=== PATIENT | male | born 1955 | race African-American/Black ===

== ENCOUNTER 2016-06-20 14:10 | Inpatient (IN) | payer OTHER ==
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
--- NOTE | 2016-06-20 16:20 | HP ---
HITESH BECKER Rehab Assess/Revision - Admission History Admitted to Rehab from: [facility] Date of Admission to Rehab: 06/20/16 - Vital signs Vital Signs: Vital Signs Period Temp Pulse Resp BP Sys/Mattson Pulse Ox Last 24 Hr 98.2 F 104 18 124/83 - Findings Detox History & Physical reviewed: Yes Concur with findings: Yes Comments/Additional Findings: transferred from detox to rehab admission as per protocol
[2016-06-20] MEDS ORDERED: ACETAMINOPHEN 325 MG TABLET (FP) PO PRN (16:21)
[2016-06-20] MEDS ORDERED: MENTHOL/PHENOL 1 EACH UD MM PRN (16:21)
[2016-06-20] MEDS ORDERED: P-EPHED 60MG/TRIPROLIDI 2.5MG TABLET PO PRN (16:21)
[2016-06-20] MEDS ORDERED: hydrOXYzine PAMOATE 50 MG CAPSULE (FP) PO PRN (16:21)
[2016-06-20] MEDS ORDERED: MAG HYDROX/AL HYDROX/SIMETH 30 ML UNIT-DOSE CUP PO PRN (16:21)
[2016-06-20] MEDS ORDERED: NICOTINE 14 MG/24 HOURS TOPICAL PATCH TD PRN (16:21)
[2016-06-20] MEDS ORDERED: diphenhydrAMINE HCL 50 MG CAPSULE PO PRN (16:21)
[2016-06-20] MEDS ORDERED: MAGNESIUM CITRATE 300 ML BOTTLE PO PRN (16:21)
[2016-06-20] MEDS ORDERED: LOPERAMIDE HCL 2 MG CAPSULE PO PRN (16:21)
[2016-06-20] MEDS ORDERED: MAGNESIUM HYDROX 2400MG/30ML ORAL SUSPENSION 30 ML CUP PO PRN (16:21)
[2016-06-20] MEDS: MONTELUKAST NA 10 MG TABLET PO SCH (21:26)
[2016-06-20] MEDS: DOXEPIN HCL 10 MG CAPSULE PO SCH (21:26)
[2016-06-20] MEDS: THIAMINE HCL 100 MG TABLET (FP) PO SCH (21:26)
[2016-06-20] MEDS: ALBUTEROL SO4 6.7 GM HFA INHALER IH PRN (21:27)
[2016-06-20] MEDS: ETRAVIRINE 200 MG TABLET PO SCH (21:28)
[2016-06-20] MEDS: RALTEGRAVIR POTASSIUM 400 MG TAB PO SCH (21:30)
[2016-06-20] MEDS: NICOTINE POLACRILEX 2 MG GUM BUC PRN (21:31)
[2016-06-21] MEDS: ALBUTEROL SO4 6.7 GM HFA INHALER IH PRN ×3 (06:25→21:28)
[2016-06-21] MEDS: RALTEGRAVIR POTASSIUM 400 MG TAB PO SCH ×2 (09:33→21:27)
[2016-06-21] MEDS: EMTRICITABINE 200MG/TENOFOVIR 300MG PO SCH (09:33)
[2016-06-21] MEDS: ETRAVIRINE 200 MG TABLET PO SCH ×2 (09:33→21:27)
[2016-06-21] MEDS: PRENATAL VITAMINS W/ FOLIC ACID TABLET (FP) PO SCH (09:33)
[2016-06-21] MEDS: SULFAMETHOXAZOLE/TRIMETHOPRIM 800MG/160MG D.S. TABLET PO SCH (09:33)
[2016-06-21] MEDS: NICOTINE POLACRILEX 2 MG GUM BUC PRN ×2 (09:35→21:29)
[2016-06-21] MEDS: IBUPROFEN 400 MG TABLET (FP) PO PRN (09:36)
[2016-06-21] MEDS: THIAMINE HCL 100 MG TABLET (FP) PO SCH (21:27)
[2016-06-21] MEDS: MONTELUKAST NA 10 MG TABLET PO SCH (21:27)
[2016-06-21] MEDS: guaiFENesin/D-METHORPHAN HB 10 ML UNIT-DOSE CUPS PO PRN (21:27)
[2016-06-21] MEDS: DOXEPIN HCL 10 MG CAPSULE PO SCH (21:27)
[2016-06-22] MEDS: guaiFENesin/D-METHORPHAN HB 10 ML UNIT-DOSE CUPS PO PRN ×2 (06:21→21:20)
[2016-06-22] MEDS: ALBUTEROL SO4 6.7 GM HFA INHALER IH PRN ×2 (06:22→21:20)
[2016-06-22] MEDS: NICOTINE POLACRILEX 2 MG GUM BUC PRN ×2 (06:22→21:22)
[2016-06-22] MEDS: SULFAMETHOXAZOLE/TRIMETHOPRIM 800MG/160MG D.S. TABLET PO SCH (09:53)
[2016-06-22] MEDS: RALTEGRAVIR POTASSIUM 400 MG TAB PO SCH ×2 (09:53→21:21)
[2016-06-22] MEDS: PRENATAL VITAMINS W/ FOLIC ACID TABLET (FP) PO SCH (09:54)
[2016-06-22] MEDS: EMTRICITABINE 200MG/TENOFOVIR 300MG PO SCH (09:54)
[2016-06-22] MEDS: ETRAVIRINE 200 MG TABLET PO SCH ×2 (09:57→21:20)
[2016-06-22] MEDS: IBUPROFEN 400 MG TABLET (FP) PO PRN (09:58)
[2016-06-22] MEDS: MONTELUKAST NA 10 MG TABLET PO SCH (21:20)
[2016-06-22] MEDS: DOXEPIN HCL 10 MG CAPSULE PO SCH (21:20)
[2016-06-22] MEDS: THIAMINE HCL 100 MG TABLET (FP) PO SCH (21:21)
[2016-06-23] MEDS: ALBUTEROL SO4 6.7 GM HFA INHALER IH PRN (06:23)
[2016-06-23] MEDS: guaiFENesin/D-METHORPHAN HB 10 ML UNIT-DOSE CUPS PO PRN ×2 (06:23→21:44)
[2016-06-23] MEDS: RALTEGRAVIR POTASSIUM 400 MG TAB PO SCH ×2 (10:10→21:39)
[2016-06-23] MEDS: SULFAMETHOXAZOLE/TRIMETHOPRIM 800MG/160MG D.S. TABLET PO SCH (10:10)
[2016-06-23] MEDS: PRENATAL VITAMINS W/ FOLIC ACID TABLET (FP) PO SCH (10:10)
[2016-06-23] MEDS: ETRAVIRINE 200 MG TABLET PO SCH ×2 (10:11→21:41)
[2016-06-23] MEDS: EMTRICITABINE 200MG/TENOFOVIR 300MG PO SCH (10:11)
[2016-06-23] MEDS: NICOTINE POLACRILEX 2 MG GUM BUC PRN (10:12)
[2016-06-23] MEDS ORDERED: ALBUTEROL SO4 2.5/IPRATROPIUM 0.5 INH SOL 3 ML VIAL.NEB. NEB PRN (12:58)
--- NOTE | 2016-06-23 13:01 | PN ---
[facility] Progress Note Note: 60 y/o m pt with h/o hiv, asthma c/o cough that is clear no fever and wheezing Vital Signs Temperature 97.9 F 06/23/16 07:14 Pulse Rate 93 H 06/23/16 07:14 Respiratory Rate 18 06/23/16 07:14 Blood Pressure 123/82 06/23/16 07:14 O2 Sat by Pulse Oximetry (%) pt aox3 in nad ambulating lungs + wheezes hattie imp- asthma hiv plan- symbicort inh bid duoneb neb q4h /prn n fluids
[2016-06-23] MEDS: DOXEPIN HCL 10 MG CAPSULE PO SCH (21:39)
[2016-06-23] MEDS: THIAMINE HCL 100 MG TABLET (FP) PO SCH (21:39)
[2016-06-23] MEDS: MONTELUKAST NA 10 MG TABLET PO SCH (21:39)
[2016-06-23] MEDS: BUDESONIDE/FORMETEROL FUMARATE 160/4.5 mcg INHALER IH SCH (21:42)
[2016-06-24] MEDS: RALTEGRAVIR POTASSIUM 400 MG TAB PO SCH ×2 (10:06→21:39)
[2016-06-24] MEDS: SULFAMETHOXAZOLE/TRIMETHOPRIM 800MG/160MG D.S. TABLET PO SCH (10:06)
[2016-06-24] MEDS: PRENATAL VITAMINS W/ FOLIC ACID TABLET (FP) PO SCH (10:06)
[2016-06-24] MEDS: ETRAVIRINE 200 MG TABLET PO SCH ×2 (10:09→21:39)
[2016-06-24] MEDS: BUDESONIDE/FORMETEROL FUMARATE 160/4.5 mcg INHALER IH SCH ×2 (10:09→21:42)
[2016-06-24] MEDS: EMTRICITABINE 200MG/TENOFOVIR 300MG PO SCH (10:10)
[2016-06-24] MEDS: guaiFENesin/D-METHORPHAN HB 10 ML UNIT-DOSE CUPS PO PRN ×2 (10:12→21:43)
[2016-06-24] MEDS: NICOTINE POLACRILEX 2 MG GUM BUC PRN (10:12)
[2016-06-24] MEDS: THIAMINE HCL 100 MG TABLET (FP) PO SCH (21:39)
[2016-06-24] MEDS: MONTELUKAST NA 10 MG TABLET PO SCH (21:39)
[2016-06-24] MEDS: DOXEPIN HCL 10 MG CAPSULE PO SCH (21:39)
[2016-06-25] MEDS ORDERED: PT OWN MED DRAWER 7, Y5N ONE (08:36)
[2016-06-25] MEDS: ETRAVIRINE 200 MG TABLET PO SCH ×2 (10:36→21:31)
[2016-06-25] MEDS: PRENATAL VITAMINS W/ FOLIC ACID TABLET (FP) PO SCH (10:37)
[2016-06-25] MEDS: SULFAMETHOXAZOLE/TRIMETHOPRIM 800MG/160MG D.S. TABLET PO SCH (10:37)
[2016-06-25] MEDS: EMTRICITABINE 200MG/TENOFOVIR 300MG PO SCH (10:37)
[2016-06-25] MEDS: RALTEGRAVIR POTASSIUM 400 MG TAB PO SCH ×2 (10:37→21:31)
[2016-06-25] MEDS: guaiFENesin/D-METHORPHAN HB 10 ML UNIT-DOSE CUPS PO PRN ×2 (10:40→21:32)
[2016-06-25] MEDS: IBUPROFEN 400 MG TABLET (FP) PO PRN (10:40)
[2016-06-25] MEDS: BUDESONIDE/FORMETEROL FUMARATE 160/4.5 mcg INHALER IH SCH ×2 (10:40→21:32)
[2016-06-25] MEDS: MONTELUKAST NA 10 MG TABLET PO SCH (21:31)
[2016-06-25] MEDS: THIAMINE HCL 100 MG TABLET (FP) PO SCH (21:31)
[2016-06-25] MEDS: DOXEPIN HCL 10 MG CAPSULE PO SCH (21:31)
[2016-06-25] MEDS: NICOTINE POLACRILEX 2 MG GUM BUC PRN (21:34)
[2016-06-26] MEDS: BUDESONIDE/FORMETEROL FUMARATE 160/4.5 mcg INHALER IH SCH ×2 (10:26→21:11)
[2016-06-26] MEDS: ETRAVIRINE 200 MG TABLET PO SCH ×2 (10:27→21:12)
[2016-06-26] MEDS: SULFAMETHOXAZOLE/TRIMETHOPRIM 800MG/160MG D.S. TABLET PO SCH (10:27)
[2016-06-26] MEDS: PRENATAL VITAMINS W/ FOLIC ACID TABLET (FP) PO SCH (10:27)
[2016-06-26] MEDS: RALTEGRAVIR POTASSIUM 400 MG TAB PO SCH ×2 (10:27→21:11)
[2016-06-26] MEDS: EMTRICITABINE 200MG/TENOFOVIR 300MG PO SCH (10:27)
[2016-06-26] MEDS: IBUPROFEN 400 MG TABLET (FP) PO PRN (10:29)
[2016-06-26] MEDS: guaiFENesin/D-METHORPHAN HB 10 ML UNIT-DOSE CUPS PO PRN ×2 (10:30→21:13)
[2016-06-26] MEDS: NICOTINE POLACRILEX 2 MG GUM BUC PRN (10:31)
[2016-06-26] MEDS: THIAMINE HCL 100 MG TABLET (FP) PO SCH (21:11)
[2016-06-26] MEDS: ALBUTEROL SO4 6.7 GM HFA INHALER IH PRN (21:11)
[2016-06-26] MEDS: MONTELUKAST NA 10 MG TABLET PO SCH (21:13)
[2016-06-26] MEDS: DOXEPIN HCL 10 MG CAPSULE PO SCH (21:13)
[2016-06-27] MEDS: PRENATAL VITAMINS W/ FOLIC ACID TABLET (FP) PO SCH (09:56)
[2016-06-27] MEDS: BUDESONIDE/FORMETEROL FUMARATE 160/4.5 mcg INHALER IH SCH ×2 (09:57→21:22)
[2016-06-27] MEDS: SULFAMETHOXAZOLE/TRIMETHOPRIM 800MG/160MG D.S. TABLET PO SCH (09:57)
[2016-06-27] MEDS: RALTEGRAVIR POTASSIUM 400 MG TAB PO SCH ×2 (09:57→21:20)
[2016-06-27] MEDS: EMTRICITABINE 200MG/TENOFOVIR 300MG PO SCH (09:58)
[2016-06-27] MEDS: ETRAVIRINE 200 MG TABLET PO SCH ×2 (09:58→21:21)
[2016-06-27] MEDS: NICOTINE POLACRILEX 2 MG GUM BUC PRN ×2 (10:00→21:24)
[2016-06-27] MEDS: THIAMINE HCL 100 MG TABLET (FP) PO SCH (21:21)
[2016-06-27] MEDS: DOXEPIN HCL 10 MG CAPSULE PO SCH (21:21)
[2016-06-27] MEDS: guaiFENesin/D-METHORPHAN HB 10 ML UNIT-DOSE CUPS PO PRN (21:24)
[2016-06-27] MEDS: MONTELUKAST NA 10 MG TABLET PO SCH (22:20)
[2016-06-28] MEDS: BUDESONIDE/FORMETEROL FUMARATE 160/4.5 mcg INHALER IH SCH ×2 (10:04→21:34)
[2016-06-28] MEDS: PRENATAL VITAMINS W/ FOLIC ACID TABLET (FP) PO SCH (10:04)
[2016-06-28] MEDS: RALTEGRAVIR POTASSIUM 400 MG TAB PO SCH ×2 (10:04→21:34)
[2016-06-28] MEDS: SULFAMETHOXAZOLE/TRIMETHOPRIM 800MG/160MG D.S. TABLET PO SCH (10:04)
[2016-06-28] MEDS: EMTRICITABINE 200MG/TENOFOVIR 300MG PO SCH (10:04)
[2016-06-28] MEDS: ETRAVIRINE 200 MG TABLET PO SCH ×2 (10:05→21:34)
[2016-06-28] MEDS: THIAMINE HCL 100 MG TABLET (FP) PO SCH (21:34)
[2016-06-28] MEDS: MONTELUKAST NA 10 MG TABLET PO SCH (21:34)
[2016-06-28] MEDS: DOXEPIN HCL 10 MG CAPSULE PO SCH (21:34)
[2016-06-29] MEDS: SULFAMETHOXAZOLE/TRIMETHOPRIM 800MG/160MG D.S. TABLET PO SCH (09:57)
[2016-06-29] MEDS: BUDESONIDE/FORMETEROL FUMARATE 160/4.5 mcg INHALER IH SCH ×2 (09:57→21:03)
[2016-06-29] MEDS: PRENATAL VITAMINS W/ FOLIC ACID TABLET (FP) PO SCH (09:57)
[2016-06-29] MEDS: RALTEGRAVIR POTASSIUM 400 MG TAB PO SCH ×2 (09:57→21:04)
[2016-06-29] MEDS: ETRAVIRINE 200 MG TABLET PO SCH ×2 (09:58→21:03)
[2016-06-29] MEDS: EMTRICITABINE 200MG/TENOFOVIR 300MG PO SCH (09:58)
[2016-06-29] MEDS: IBUPROFEN 400 MG TABLET (FP) PO PRN (10:00)
[2016-06-29] MEDS: NICOTINE POLACRILEX 2 MG GUM BUC PRN (10:01)
[2016-06-29] MEDS: THIAMINE HCL 100 MG TABLET (FP) PO SCH (21:03)
[2016-06-29] MEDS: MONTELUKAST NA 10 MG TABLET PO SCH (21:04)
[2016-06-29] MEDS: ALBUTEROL SO4 6.7 GM HFA INHALER IH PRN (21:04)
[2016-06-29] MEDS: DOXEPIN HCL 10 MG CAPSULE PO SCH (21:04)
[2016-06-30] MEDS: RALTEGRAVIR POTASSIUM 400 MG TAB PO SCH ×2 (10:07→21:20)
[2016-06-30] MEDS: EMTRICITABINE 200MG/TENOFOVIR 300MG PO SCH (10:08)
[2016-06-30] MEDS: PRENATAL VITAMINS W/ FOLIC ACID TABLET (FP) PO SCH (10:08)
[2016-06-30] MEDS: SULFAMETHOXAZOLE/TRIMETHOPRIM 800MG/160MG D.S. TABLET PO SCH (10:08)
[2016-06-30] MEDS: ETRAVIRINE 200 MG TABLET PO SCH ×2 (10:08→21:20)
[2016-06-30] MEDS: BUDESONIDE/FORMETEROL FUMARATE 160/4.5 mcg INHALER IH SCH ×2 (10:08→21:20)
[2016-06-30] MEDS: IBUPROFEN 400 MG TABLET (FP) PO PRN (10:09)
[2016-06-30] MEDS: NICOTINE POLACRILEX 2 MG GUM BUC PRN (10:10)
[2016-06-30] MEDS: MONTELUKAST NA 10 MG TABLET PO SCH (21:20)
[2016-06-30] MEDS: DOXEPIN HCL 10 MG CAPSULE PO SCH (21:20)
[2016-06-30] MEDS: THIAMINE HCL 100 MG TABLET (FP) PO SCH (21:21)
[2016-07-01] MEDS: SULFAMETHOXAZOLE/TRIMETHOPRIM 800MG/160MG D.S. TABLET PO SCH (09:59)
[2016-07-01] MEDS: ETRAVIRINE 200 MG TABLET PO SCH ×2 (09:59→21:04)
[2016-07-01] MEDS: BUDESONIDE/FORMETEROL FUMARATE 160/4.5 mcg INHALER IH SCH ×2 (09:59→21:04)
[2016-07-01] MEDS: PRENATAL VITAMINS W/ FOLIC ACID TABLET (FP) PO SCH (09:59)
[2016-07-01] MEDS: RALTEGRAVIR POTASSIUM 400 MG TAB PO SCH ×2 (09:59→21:04)
[2016-07-01] MEDS: EMTRICITABINE 200MG/TENOFOVIR 300MG PO SCH (10:00)
[2016-07-01] MEDS: IBUPROFEN 400 MG TABLET (FP) PO PRN (10:02)
[2016-07-01] MEDS: THIAMINE HCL 100 MG TABLET (FP) PO SCH (21:04)
[2016-07-01] MEDS: MONTELUKAST NA 10 MG TABLET PO SCH (21:04)
[2016-07-01] MEDS: DOXEPIN HCL 10 MG CAPSULE PO SCH (21:04)
[2016-07-02] MEDS: ALBUTEROL SO4 6.7 GM HFA INHALER IH PRN (06:13)
[2016-07-02] MEDS: SULFAMETHOXAZOLE/TRIMETHOPRIM 800MG/160MG D.S. TABLET PO SCH (10:22)
[2016-07-02] MEDS: PRENATAL VITAMINS W/ FOLIC ACID TABLET (FP) PO SCH (10:22)
[2016-07-02] MEDS: RALTEGRAVIR POTASSIUM 400 MG TAB PO SCH ×2 (10:22→21:04)
[2016-07-02] MEDS: BUDESONIDE/FORMETEROL FUMARATE 160/4.5 mcg INHALER IH SCH ×2 (10:22→21:04)
[2016-07-02] MEDS: ETRAVIRINE 200 MG TABLET PO SCH ×2 (10:22→21:04)
[2016-07-02] MEDS: EMTRICITABINE 200MG/TENOFOVIR 300MG PO SCH (10:23)
[2016-07-02] MEDS: MONTELUKAST NA 10 MG TABLET PO SCH (21:04)
[2016-07-02] MEDS: DOXEPIN HCL 10 MG CAPSULE PO SCH (21:04)
[2016-07-02] MEDS: THIAMINE HCL 100 MG TABLET (FP) PO SCH (21:04)
[2016-07-03] MEDS: PRENATAL VITAMINS W/ FOLIC ACID TABLET (FP) PO SCH (10:29)
[2016-07-03] MEDS: SULFAMETHOXAZOLE/TRIMETHOPRIM 800MG/160MG D.S. TABLET PO SCH (10:30)
[2016-07-03] MEDS: IBUPROFEN 400 MG TABLET (FP) PO PRN (10:31)
[2016-07-03] MEDS: RALTEGRAVIR POTASSIUM 400 MG TAB PO SCH ×2 (10:31→21:28)
[2016-07-03] MEDS: BUDESONIDE/FORMETEROL FUMARATE 160/4.5 mcg INHALER IH SCH ×2 (10:32→21:31)
[2016-07-03] MEDS: EMTRICITABINE 200MG/TENOFOVIR 300MG PO SCH (10:32)
[2016-07-03] MEDS: ETRAVIRINE 200 MG TABLET PO SCH ×2 (10:34→21:29)
[2016-07-03] MEDS: NICOTINE POLACRILEX 2 MG GUM BUC PRN (10:35)
[2016-07-03] MEDS: DOXEPIN HCL 10 MG CAPSULE PO SCH (21:28)
[2016-07-03] MEDS: THIAMINE HCL 100 MG TABLET (FP) PO SCH (21:28)
[2016-07-03] MEDS: MONTELUKAST NA 10 MG TABLET PO SCH (21:30)
[2016-07-04] MEDS: SULFAMETHOXAZOLE/TRIMETHOPRIM 800MG/160MG D.S. TABLET PO SCH (10:15)
[2016-07-04] MEDS: ETRAVIRINE 200 MG TABLET PO SCH ×2 (10:15→21:29)
[2016-07-04] MEDS: EMTRICITABINE 200MG/TENOFOVIR 300MG PO SCH (10:16)
[2016-07-04] MEDS: PRENATAL VITAMINS W/ FOLIC ACID TABLET (FP) PO SCH (10:16)
[2016-07-04] MEDS: BUDESONIDE/FORMETEROL FUMARATE 160/4.5 mcg INHALER IH SCH ×2 (10:16→21:30)
[2016-07-04] MEDS: ALBUTEROL SO4 6.7 GM HFA INHALER IH PRN (10:16)
[2016-07-04] MEDS: NICOTINE POLACRILEX 2 MG GUM BUC PRN (10:17)
[2016-07-04] MEDS: IBUPROFEN 400 MG TABLET (FP) PO PRN (10:17)
[2016-07-04] MEDS: RALTEGRAVIR POTASSIUM 400 MG TAB PO SCH ×2 (11:00→21:30)
[2016-07-04] MEDS: MONTELUKAST NA 10 MG TABLET PO SCH (21:29)
[2016-07-04] MEDS: DOXEPIN HCL 10 MG CAPSULE PO SCH (21:29)
[2016-07-04] MEDS: THIAMINE HCL 100 MG TABLET (FP) PO SCH (21:30)
[2016-07-05] MEDS: PRENATAL VITAMINS W/ FOLIC ACID TABLET (FP) PO SCH (09:43)
[2016-07-05] MEDS: EMTRICITABINE 200MG/TENOFOVIR 300MG PO SCH (09:43)
[2016-07-05] MEDS: SULFAMETHOXAZOLE/TRIMETHOPRIM 800MG/160MG D.S. TABLET PO SCH (09:44)
[2016-07-05] MEDS: RALTEGRAVIR POTASSIUM 400 MG TAB PO SCH ×2 (09:44→21:04)
[2016-07-05] MEDS: ETRAVIRINE 200 MG TABLET PO SCH ×2 (09:45→21:04)
[2016-07-05] MEDS: BUDESONIDE/FORMETEROL FUMARATE 160/4.5 mcg INHALER IH SCH ×2 (09:45→21:05)
[2016-07-05] MEDS: NICOTINE POLACRILEX 2 MG GUM BUC PRN (09:47)
[2016-07-05] MEDS: IBUPROFEN 400 MG TABLET (FP) PO PRN (09:47)
[2016-07-05] MEDS: ALBUTEROL SO4 6.7 GM HFA INHALER IH PRN (09:48)
[2016-07-05] MEDS: DOXEPIN HCL 10 MG CAPSULE PO SCH (21:04)
[2016-07-05] MEDS: MONTELUKAST NA 10 MG TABLET PO SCH (21:04)
[2016-07-05] MEDS: THIAMINE HCL 100 MG TABLET (FP) PO SCH (21:04)
[2016-07-06] MEDS: SULFAMETHOXAZOLE/TRIMETHOPRIM 800MG/160MG D.S. TABLET PO SCH (10:16)
[2016-07-06] MEDS: ETRAVIRINE 200 MG TABLET PO SCH ×2 (10:17→21:11)
[2016-07-06] MEDS: BUDESONIDE/FORMETEROL FUMARATE 160/4.5 mcg INHALER IH SCH ×2 (10:17→21:11)
[2016-07-06] MEDS: EMTRICITABINE 200MG/TENOFOVIR 300MG PO SCH (10:17)
[2016-07-06] MEDS: RALTEGRAVIR POTASSIUM 400 MG TAB PO SCH ×2 (10:17→21:09)
[2016-07-06] MEDS: PRENATAL VITAMINS W/ FOLIC ACID TABLET (FP) PO SCH (10:17)
[2016-07-06] MEDS: NICOTINE POLACRILEX 2 MG GUM BUC PRN (10:20)
[2016-07-06] MEDS: IBUPROFEN 400 MG TABLET (FP) PO PRN (10:20)
[2016-07-06] MEDS: THIAMINE HCL 100 MG TABLET (FP) PO SCH (21:09)
[2016-07-06] MEDS: MONTELUKAST NA 10 MG TABLET PO SCH (21:09)
[2016-07-06] MEDS: DOXEPIN HCL 10 MG CAPSULE PO SCH (21:10)
[2016-07-07 06:53] VITALS: TEMP 98
[2016-07-07] MEDS: SULFAMETHOXAZOLE/TRIMETHOPRIM 800MG/160MG D.S. TABLET PO SCH (10:22)
[2016-07-07] MEDS: RALTEGRAVIR POTASSIUM 400 MG TAB PO SCH ×2 (10:22→21:29)
[2016-07-07] MEDS: EMTRICITABINE 200MG/TENOFOVIR 300MG PO SCH (10:22)
[2016-07-07] MEDS: PRENATAL VITAMINS W/ FOLIC ACID TABLET (FP) PO SCH (10:23)
[2016-07-07] MEDS: IBUPROFEN 400 MG TABLET (FP) PO PRN (10:24)
[2016-07-07] MEDS: BUDESONIDE/FORMETEROL FUMARATE 160/4.5 mcg INHALER IH SCH ×2 (10:25→21:31)
[2016-07-07] MEDS: ETRAVIRINE 200 MG TABLET PO SCH ×2 (10:25→21:30)
[2016-07-07] MEDS: ALBUTEROL SO4 6.7 GM HFA INHALER IH PRN (10:26)
[2016-07-07] MEDS: NICOTINE POLACRILEX 2 MG GUM BUC PRN (10:27)
[2016-07-07] MEDS: MONTELUKAST NA 10 MG TABLET PO SCH (21:29)
[2016-07-07] MEDS: THIAMINE HCL 100 MG TABLET (FP) PO SCH (21:29)
[2016-07-07] MEDS: DOXEPIN HCL 10 MG CAPSULE PO SCH (21:29)
[2016-07-08 07:04] VITALS: BP 131/80; PULSE 89
--- NOTE | 2016-07-08 09:51 | PN ---
Psychiatric Progress Note Vital Signs: Vital Signs Period Temp Pulse Resp BP Sys/Mattson Pulse Ox Last 24 Hr 98.0 F 89 18-20 131/80 Date of Session: 07/08/16 Chief Complaint:: discharge visit HPI: Patient has addressed alcohol, cocaine, nicotine dependence comorbid Insomnia. ROS: HIV/AIDs , asthma have been medically managed. Current Medications: Active Medications Generic Name Dose Route Start Last Admin Trade Name Freq PRN Reason Stop Dose Admin Acetaminophen 650 mg 06/20/16 16:21 Tylenol - PO Q4H PRN FEVER OR PAIN Al Hydroxide/Mg Hydroxide 30 ml 06/20/16 16:21 Mylanta Oral Suspension - PO Q6H PRN DYSPEPSIA Albuterol Sulfate 2 puff 06/20/16 16:21 07/07/16 10:26 Ventolin Hfa Inhaler - IH 2 puff Q4H PRN Administration ASTHMA Budesonide/Formoterol Fumarate 1 puff 06/23/16 22:00 07/07/16 21:31 Symbicort 160/4.5mcg - IH 1 puff BID COOKIE Administration Diphenhydramine HCl 50 mg 06/20/16 16:21 Benadryl - PO HSMR1 PRN FOR ITCHING Doxepin HCl 10 mg 06/20/16 22:00 07/07/16 21:29 Sinequan - PO 10 mg HS COOKIE Administration Emtricitabine/Tenofovir 1 tab 06/21/16 10:00 07/07/16 10:22 Truvada PO 1 tab DAILY COOKIE Administration Etravirine 200 mg 06/20/16 22:00 07/07/16 21:30 Intelence - PO 200 mg BID COOKIE Administration Eucalyptus/Menthol/Phenol/Sorbitol 1 each 06/20/16 16:21 Cepastat Lozenge - MM Q4H PRN SORE THROAT Guaifenesin 10 ml 06/20/16 16:21 06/27/16 21:24 Robitussin Dm - PO 10 ml Q6H PRN Administration COUGH Hydroxyzine Pamoate 50 mg 06/20/16 16:21 Vistaril - PO Q4H PRN AGITATION Ibuprofen 400 mg 06/20/16 16:21 07/07/16 10:24 Motrin - PO 400 mg Q6H PRN Administration PAIN Loperamide HCl 4 mg 06/20/16 16:21 Imodium - PO Q6H PRN DIARRHEA Magnesium Hydroxide 30 ml 06/20/16 16:21 Milk Of Magnesia - PO DAILY PRN CONSTIPATION Montelukast Sodium 10 mg 06/20/16 22:00 07/07/16 21:29 Singulair - PO 10 mg HS COOKIE Administration Nicotine 14 mg 06/20/16 16:21 Nicoderm Patch - TD DAILY PRN WITHDRAWAL(CONT SUBST) Nicotine Polacrilex 2 mg 06/20/16 16:21 07/07/16 10:27 Nicorette Gum - BUC 2 mg Q2H PRN Administration NICOTINE REPLACEMENT RX Multivit/Folic Acid/Iron 1 tab 06/21/16 10:00 07/07/16 10:23 Vitamins (Sjr) - PO 1 tab DAILY COOKIE Administration Pseudoephedrine/Triprolidine 1 combo 06/20/16 16:21 Actifed - PO TID PRN NASAL CONGESTION Raltegravir 400 mg 06/20/16 22:00 07/07/16 21:29 Isentress - PO 400 mg BID COOKIE Administration Thiamine HCl 100 mg 06/20/16 22:00 07/07/16 21:29 Vitamin B1 - PO 100 mg HS COOKIE Administration Trimethoprim/Sulfamethoxazole 1 each 06/21/16 10:00 07/07/16 10:22 Bactrim Ds - PO 1 each DAILY COOKIE Administration Current Side Effect: No Lab tests ordered: No Lab tests reviewed: Yes Provider note:: Patient has completed today his treatment and met his goals, will continue to address his issues at [facility] outpatient treatment program. Patient focused on importance of changing attitude for the utilization of supports to prevent relapses, patient reports he learned a lot through this program, he understands the negative outcome of his addiction, he is motivated to continue maintain abstinence. Patient reports that Doxepin has been effective in terms of sleep improvement and anxiety reduction, scripts provided , patient is stable for discharge. Total face to face time:: 35 Mental Status Exam - Mental Status Exam Alert and Oriented to: Time, Place, Person Cognitive Function: Good Patient Appearance: Well Groomed Mood: Hopeful Affect: Appropriate, Mood Congruent Patient Behavior: Appropriate, Cooperative Speech Pattern: Clear, Appropriate Voice Loudness: Normal Thought Process: Intact, Goal Oriented Thought Disorder: Not Present Hallucinations: Denies Suicidal Ideation: Denies Homicidal Ideation: Denies Insight/Judgement: Fair Sleep: Fair Appetite: Good Muscle strength/Tone: Normal Gait/Station: Normal Psychiatric Treatment Plan - Problem List (1) Asthma Current Visit: No Qualifiers: Asthma severity: mild intermittent (2) Cocaine dependence Current Visit: No (3) HIV disease Current Visit: No (4) Alcohol dependence Current Visit: Yes (5) Insomnia Current Visit: Yes (6) Nicotine dependence Current Visit: Yes
[2016-07-08] MEDS: BUDESONIDE/FORMETEROL FUMARATE 160/4.5 mcg INHALER IH SCH (10:30)
[2016-07-08] MEDS: ETRAVIRINE 200 MG TABLET PO SCH (10:30)
[2016-07-08] MEDS: EMTRICITABINE 200MG/TENOFOVIR 300MG PO SCH (10:30)
[2016-07-08] MEDS: RALTEGRAVIR POTASSIUM 400 MG TAB PO SCH (10:30)
[2016-07-08] MEDS: PRENATAL VITAMINS W/ FOLIC ACID TABLET (FP) PO SCH (10:30)
[2016-07-08] MEDS: SULFAMETHOXAZOLE/TRIMETHOPRIM 800MG/160MG D.S. TABLET PO SCH (10:30)
[2016-07-08] MEDS: IBUPROFEN 400 MG TABLET (FP) PO PRN (10:31)
== END 2016-07-08 11:00 | disposition home or self-care (01) | DRG 895 ==
LOC: YASAS 14:10 → Y5N 14:11
PROVIDERS: ADMIT Psychiatry & Neurology Psychiatry; ATTEND Psychiatry & Neurology Psychiatry
PROC: HZ42ZZZ Group Counseling for Substance Abuse Treatment, Cognitive-Behavioral (ICD-10-PCS; principal; 2016-06-20)
DX: F10.20 Alcohol dependence, uncomplicated (principal); F14.20 Cocaine dependence, uncomplicated; F17.210 Nicotine dependence, cigarettes, uncomplicated; Z21 Asymptomatic human immunodeficiency virus [HIV] infection status; J45.909 Unspecified asthma, uncomplicated; G47.00 Insomnia, unspecified

== ENCOUNTER 2019-03-21 11:10 | Inpatient (IN) | payer OTHER ==
[2019-03-21 12:11] VITALS: BMI 18.6
--- NOTE | 2019-03-21 13:29 | HP ---
CIWA Score Nausea/Vomitin Muscle Tremors: 1-None Visible, but [place] Anxiety: 1-Mildly Anxious Agitation: 1-Slight > Activity Paroxysmal Sweats: No Perspiration Orientation: 0-Oriented Tacttile Disturbances: 0-None Auditory Disturbances: 0-None Visual Disturbances: 0-None Headache: 0-None Present CIWA-Ar Total Score: 5 - Admission Criteria OASAS Guidelines: Admission for Medically Managed Detox: Requires at least one of the followin. CIWA greater than 12 2. Seizures within the past 24 hours 3. Delirium tremens within the past 24 hours 4. Hallucinations within the past 24 hours 5. Acute intervention needed for co occurring medical disorder 6. Acute intervention needed for co occurring psychiatric disorder 7. Severe withdrawal that cannot be handled at a lower level of care (continued vomiting, continued diarrhea, abnormal vital signs) requiring intravenous medication and/or fluids 8. Admitting History and Physical - Smoking History Smoking history: Current every day smoker Aproximately how many cigarettes per day: 3 - Alcohol/Substance Use Hx Alcohol Use: Yes Admission [facility] Allergies/Adverse Reactions: Allergies Allergy/AdvReac Type Severity Reaction Status Date / Time No Known Allergies Allergy Verified 03/21/19 11:53 History of Present Illness: 63 y/o M with a history of alcohol and crack cocaine use presenting to [facility] for detox from alcohol. Pt has been drinking for over 30 years.Stayed sober from [id number] and has been drinking on and off since. For the past 2 weeks, patient has been drinking 2-3 16oz cans of beer and a 1/2 pint of vodka daily. Prior to that, his previous drinking period was a month ago. His last drink was this morning consisting of 1 16 oz can of beer. Pt last detox/rehab was 2 years ago here. Pt has a history blackout and his last one was a week ago without injury. Denies any withdrawal seizures. As for his crack cocaine use, pt admits to using crack cocaine for the past 10- 15 yrs only when he is drinking. He smokes about 100$ worth for a few days in a week. no needles or works. Smokes 3-4 cig a day whenever he is drinking. Will like to go to rehab. PMH: HIV+ for over 30 years. viral load undectable , last CD4 count was 140. recent change in regimen to increase. HTN, Asthma PSych : bipolar II not on meds yet per psychiatrist PSH: none Social Hx: live in [place] with parents house. currently on break from work PE VS :97.7F, 118/76 mmhg, 107 bpm now 100, 18 luciano: [id number] utox: suzanne ciwa; 5 General: anxious HEENT: PERRLA, moist membrane LUNG: VBS b/l HEART: tachy RRR no MRG Abdomen: + BS, NTND extremities: 2+ pulses, no edma neuro: neuro grossly intact PLan: AUD- valium protocol chest Xray for history of + PPD Smoking cessation counseled. declined patch due to side effect MED REC'ED ALREADY - Ebola screening Have you traveled outside of the country in the last 21 days: No Have you had contact with anyone from an Ebola affected area: No Do you have a fever: No Patient History - Patient Medical History Hx Anemia: No Hx Asthma: Yes Hx Chronic Obstructive Pulmonary Disease (COPD): No Hx Cancer: No Hx Cardiac Disorders: No Hx Congestive Heart Failure: No Hx Hypertension: No Hx Hypercholesterolemia: No Hx Pacemaker: No HX Cerebrovascular Accident: No Hx Seizures: No Hx Dementia: No Hx Diabetes: No Hx Gastrointestinal Disorders: No Hx Liver Disease: No Hx Genitourinary Disorders: No Hx Sexually Transmitted Disorders: No Hx Renal Disease (ESRD): No Hx Thyroid Disease: No Hx Human Immunodeficiency Virus (HIV): Yes (since 1990) Hx Hepatitis C: No Hx Depression: No Hx Suicide Attempt: No Hx Bipolar Disorder: No Hx Schizophrenia: No - Patient Surgical History Past Surgical History: No Hx Neurologic Surgery: No Hx Cataract Extraction: No Hx Cardiac Surgery: No Hx Lung Surgery: No Hx Breast Surgery: No Hx Breast Biopsy: No Hx Abdominal Surgery: No Hx Appendectomy: No Hx Cholecystectomy: No Hx Genitourinary Surgery: No Hx Section: No Hx Orthopedic Surgery: No - Smoking Cessation Smoking history: Current every day smoker Aproximately how many cigarettes per day: 3 Hx Chewing Tobacco Use: No Initiated information on smoking cessation: Yes 'Breaking Loose' booklet given: 03/21/19 - Substances abused Alcohol Substance route: Oral Frequency: Daily Amount used: 2-3 16 oz beer and 2 pint of vodka Age of first use: 12 Date of last use: 03/21/19 Crack Frequency: 1-2 times per week Amount used: $100 Age of first use: 29 Date of last use: 03/20/19 Admission Physical Exam [facility] - Vital Signs Vital Signs: Vital Signs - 24 hr 03/21/19 11:53 Temperature 97.7 F Pulse Rate 107 H Respiratory 18 Rate Blood Pressure 118/76 Breathalyzer - Breathalyzer Breathalyzer: 0.029 Urine Drug Screen - Test Device Lot number: [id number] Expiration date: 11/07/20 - Control Is test valid?: Yes - Results Drug screen NEGATIVE: No Urine drug screen results: SUZANNE-Cocaine Inpatient Rehab Admission - Rehab Decision to Admit Inpatient rehab admission?: No
[2019-03-21] MEDS ORDERED: diazePAM 5 MG TABLET PO PRN (13:36)
[2019-03-21] MEDS ORDERED: MAGNESIUM CITRATE 300 ML BOTTLE PO PRN (13:39)
[2019-03-21] MEDS ORDERED: ACETAMINOPHEN 325 MG TABLET (FP) PO PRN (13:39)
[2019-03-21] MEDS ORDERED: METHOCARBAMOL 500 MG TABLET PO PRN (13:39)
[2019-03-21] MEDS ORDERED: hydrOXYzine PAMOATE 25 MG CAPSULE (FP) PO PRN (13:39)
[2019-03-21] MEDS ORDERED: MAGNESIUM HYDROX 2400MG/30ML ORAL SUSPENSION 30 ML CUP PO PRN (13:39)
[2019-03-21] MEDS ORDERED: MAG HYDROX/AL HYDROX/SIMETH 30 ML UNIT-DOSE CUP PO PRN (13:39)
[2019-03-21] MEDS ORDERED: BISMUTH SUBSALICYLATE 262 MG/15 ML BTL PO PRN (13:39)
[2019-03-21] MEDS ORDERED: IBUPROFEN 400 MG TABLET (FP) PO PRN (13:39)
[2019-03-21] MEDS ORDERED: MELATONIN 5 MG TABLETS PO PRN (13:39)
[2019-03-21] MEDS ORDERED: MENTHOL/PHENOL 1 EACH UD MM PRN (13:39)
[2019-03-21] MEDS ORDERED: ALBUTEROL SO4 HFA INHALER IH PRN (14:04)
--- NOTE | 2019-03-21 14:14 | PN ---
Teaching Attending Note Name of Resident: Paulina Randolph ATTENDING PHYSICIAN STATEMENT I saw and evaluated the patient. I reviewed the resident's note and discussed the case with the resident. I agree with the resident's findings and plan as documented. SUBJECTIVE: pt here for etoh detox , reports relapse 2 weeks ago , current daily use 2-3 16oz cans of beer and a 1/2 pint of vodka daily, sober from 2000- 2005 , intermittently since , latest use today . denies seizures , + blackouts . tobacco : 04/13 ppd PMH: HIV+ x 30 years. viral load undectable , last CD4 count was 140. HTN, Asthma PSych : bipolar II not on meds yet per psychiatrist PSH: none OBJECTIVE: wnwd , thin Vital Signs - 24 hr 03/21/19 11:53 Temperature 97.7 F Pulse Rate 107 H Respiratory 18 Rate Blood Pressure 118/76 ASSESSMENT AND PLAN: AUD - Valium detox Lead Programmer Analyst consult
[2019-03-21] MEDS: diazePAM 5 MG TABLET PO SCH ×2 (15:32→22:31)
[2019-03-21] MEDS: MONTELUKAST NA 10 MG TABLET PO SCH (22:30)
[2019-03-21] MEDS: THIAMINE HCL 100 MG TABLET (FP) PO SCH (22:30)
[2019-03-21] MEDS: BUDESONIDE/FORMETEROL FUMARATE 160/4.5 mcg INHALER IH SCH (22:35)
[2019-03-22] MEDS: diazePAM 5 MG TABLET PO SCH (05:43)
[2019-03-22] MEDS: ACETAMINOPHEN 325 MG TABLET (FP) PO PRN (05:47)
[2019-03-22] MEDS ORDERED: diazePAM 5 MG TABLET PO SCH ×2 (06:00→12:00)
[2019-03-22] MEDS ORDERED: LORazepam 1 MG TABLET PO PRN (09:57)
[2019-03-22 10:09] LABS: HEMATOCRIT 40.1 % (35.4-49); HEMOGLOBIN 13.2 GM/dL (11.7-16.9); MCH 32.5 pg (25.7-33.7); MCHC 32.9 g/dl (32.0-35.9); MEAN CELL VOLUME 98.7 fl (80-96); MEAN PLT VOLUME 9.6 fl (7.5-11.1); PLATELET COUNT 158 K/MM3 (134-434); RBC 4.07 M/mm3 (4.00-5.60); RDW 14.9 % (11.9-15.9); WHITE BLOOD COUNT 3.3 K/mm3 (4.0-10.0)
[2019-03-22 10:22] LABS: ALBUMIN 3.7 g/dl (3.4-5.0); BILIRUBIN,TOTAL 0.7 mg/dL (0.2-1); BLOOD UREA NITROGEN 17.9 mg/dL (7-18); CALCIUM 9.4 mg/dL (8.5-10.1); CREATININE 1.3 mg/dL (0.55-1.3); TOT PROT 7.6 g/dl (6.4-8.2)
[2019-03-22] MEDS: FOLIC ACID 1 MG TABLET (FP) PO SCH (10:53)
[2019-03-22] MEDS: CHOLECALCIFEROL (VIT D3) 1,000 UNIT (25 MCG) TABLET PO SCH (10:53)
[2019-03-22] MEDS: BUDESONIDE/FORMETEROL FUMARATE 160/4.5 mcg INHALER IH SCH ×2 (10:53→22:31)
[2019-03-22] MEDS: SULFAMETHOXAZOLE/TRIMETHOPRIM 800MG/160MG D.S. TABLET PO SCH (10:53)
[2019-03-22] MEDS: BICTEGRAV/EMTRICIT/TENOFOV (BIKTARVY) 50-200-25 MG TABLET PO SCH (10:53)
[2019-03-22] MEDS: LORazepam 2 MG TABLET PO SCH ×3 (10:53→22:30)
[2019-03-22] MEDS: PRENATAL VITAMINS W/ FOLIC ACID TABLET (FP) PO SCH (10:53)
[2019-03-22] MEDS: LISINOPRIL 10 MG TABLET (FP) PO SCH (10:53)
[2019-03-22] MEDS ORDERED: FLU VACCINE QUAD 60 MCG/0.5 ML (MDV 19-20) IM ONE (12:00)
--- NOTE | 2019-03-22 13:49 | PN ---
[facility] CIWA - CIWA Score Nausea/Vomitin-Mild Nausea/No Vomiting Muscle Tremors: 2 Anxiety: 2 Agitation: 2 Paroxysmal Sweats: No Perspiration Orientation: 0-Oriented Tacttile Disturbances: 1-Very Mild Itch/Numbness Auditory Disturbances: 0-None Visual Disturbances: 0-None Headache: 1-Very Mild CIWA-Ar Total Score: 9 S Progress Note (SOAP) Subjective: alert,irritable,anxious,interrupted sleep,tremor,weight loss Objective: 03/22/19 13:47 Vital Signs Temperature 97.5 F L 03/22/19 13:34 Pulse Rate 95 H 03/22/19 13:34 Respiratory Rate 18 03/22/19 13:34 Blood Pressure 109/78 03/22/19 13:34 O2 Sat by Pulse Oximetry (%) Laboratory Last Values WBC 3.3 K/mm3 (4.0-10.0) L 03/22/19 08:00 RBC 4.07 M/mm3 (4.00-5.60) 03/22/19 08:00 Hgb 13.2 GM/dL (11.7-16.9) 03/22/19 08:00 Hct 40.1 % (35.4-49) 03/22/19 08:00 MCV 98.7 fl (80-96) H 03/22/19 08:00 MCH 32.5 pg (25.7-33.7) 03/22/19 08:00 MCHC 32.9 g/dl (32.0-35.9) 03/22/19 08:00 RDW 14.9 % (11.9-15.9) 03/22/19 08:00 Plt Count 158 K/MM3 (134-434) 03/22/19 08:00 MPV 9.6 fl (7.5-11.1) 03/22/19 08:00 Sodium 139 mmol/L (136-145) 03/22/19 08:00 Potassium 4.0 mmol/L (3.5-5.1) 03/22/19 08:00 Chloride 103 mmol/L (98-107) 03/22/19 08:00 Carbon Dioxide 28 mmol/L (21-32) 03/22/19 08:00 Anion Gap 8 MMOL/L (8-16) 03/22/19 08:00 BUN 17.9 mg/dL (7-18) 03/22/19 08:00 Creatinine 1.3 mg/dL (0.55-1.3) 03/22/19 08:00 Est GFR (CKD-EPI)AfAm 66.83 03/22/19 08:00 Est GFR (CKD-EPI)NonAf 57.66 03/22/19 08:00 Random Glucose 121 mg/dL (74-106) H 03/22/19 08:00 Calcium 9.4 mg/dL (8.5-10.1) 03/22/19 08:00 Total Bilirubin 0.7 mg/dL (0.2-1) 03/22/19 08:00 AST 15 U/L (15-37) 03/22/19 08:00 ALT 21 U/L (13-61) 03/22/19 08:00 Alkaline Phosphatase 76 U/L (45-117) 03/22/19 08:00 Total Protein 7.6 g/dl (6.4-8.2) 03/22/19 08:00 Albumin 3.7 g/dl (3.4-5.0) 03/22/19 08:00 RPR Titer Nonreactive (NONREACTIVE) 03/22/19 08:00 Assessment: 03/22/19 13:47 withrawal symptom Plan: continue detox,patient would like regimen to change to ativan instead of valium
[2019-03-22] MEDS: THIAMINE HCL 100 MG TABLET (FP) PO SCH (22:30)
[2019-03-22] MEDS: MONTELUKAST NA 10 MG TABLET PO SCH (22:30)
[2019-03-23] MEDS: LORazepam 2 MG TABLET PO SCH ×4 (05:50→22:27)
[2019-03-23] MEDS ORDERED: diazePAM 5 MG TABLET PO ONE (06:00)
[2019-03-23] MEDS: PRENATAL VITAMINS W/ FOLIC ACID TABLET (FP) PO SCH (10:18)
[2019-03-23] MEDS: BUDESONIDE/FORMETEROL FUMARATE 160/4.5 mcg INHALER IH SCH ×2 (10:18→22:28)
[2019-03-23] MEDS: CHOLECALCIFEROL (VIT D3) 1,000 UNIT (25 MCG) TABLET PO SCH (10:19)
[2019-03-23] MEDS: LISINOPRIL 10 MG TABLET (FP) PO SCH (10:19)
[2019-03-23] MEDS: FOLIC ACID 1 MG TABLET (FP) PO SCH (10:19)
[2019-03-23] MEDS: SULFAMETHOXAZOLE/TRIMETHOPRIM 800MG/160MG D.S. TABLET PO SCH (10:19)
[2019-03-23] MEDS: BICTEGRAV/EMTRICIT/TENOFOV (BIKTARVY) 50-200-25 MG TABLET PO SCH (10:20)
--- NOTE | 2019-03-23 12:02 | PN ---
S CIWA - CIWA Score Nausea/Vomitin-No Nausea/No Vomiting Muscle Tremors: None Anxiety: 3 Agitation: 0-Normal Activity Paroxysmal Sweats: 3 Orientation: 0-Oriented Tacttile Disturbances: 0-None Auditory Disturbances: 0-None Visual Disturbances: 0-None Headache: 2-Mild CIWA-Ar Total Score: 8 B[facility] Progress Note (SOAP) Subjective: c/o headache, anxiety, and sweats. Objective: 03/23/19 12:02 Vital Signs 03/23/19 03/23/19 06:08 09:13 Temperature 98.6 F 97.2 F L Pulse Rate 109 H 88 Respiratory 18 18 Rate Blood Pressure 118/79 120/84 Laboratory Last Values WBC 3.3 K/mm3 (4.0-10.0) L 03/22/19 08:00 RBC 4.07 M/mm3 (4.00-5.60) 03/22/19 08:00 Hgb 13.2 GM/dL (11.7-16.9) 03/22/19 08:00 Hct 40.1 % (35.4-49) 03/22/19 08:00 MCV 98.7 fl (80-96) H 03/22/19 08:00 MCH 32.5 pg (25.7-33.7) 03/22/19 08:00 MCHC 32.9 g/dl (32.0-35.9) 03/22/19 08:00 RDW 14.9 % (11.9-15.9) 03/22/19 08:00 Plt Count 158 K/MM3 (134-434) 03/22/19 08:00 MPV 9.6 fl (7.5-11.1) 03/22/19 08:00 Sodium 139 mmol/L (136-145) 03/22/19 08:00 Potassium 4.0 mmol/L (3.5-5.1) 03/22/19 08:00 Chloride 103 mmol/L (98-107) 03/22/19 08:00 Carbon Dioxide 28 mmol/L (21-32) 03/22/19 08:00 Anion Gap 8 MMOL/L (8-16) 03/22/19 08:00 BUN 17.9 mg/dL (7-18) 03/22/19 08:00 Creatinine 1.3 mg/dL (0.55-1.3) 03/22/19 08:00 Est GFR (CKD-EPI)AfAm 66.83 03/22/19 08:00 Est GFR (CKD-EPI)NonAf 57.66 03/22/19 08:00 Random Glucose 121 mg/dL (74-106) H 03/22/19 08:00 Calcium 9.4 mg/dL (8.5-10.1) 03/22/19 08:00 Total Bilirubin 0.7 mg/dL (0.2-1) 03/22/19 08:00 AST 15 U/L (15-37) 03/22/19 08:00 ALT 21 U/L (13-61) 03/22/19 08:00 Alkaline Phosphatase 76 U/L (45-117) 03/22/19 08:00 Total Protein 7.6 g/dl (6.4-8.2) 03/22/19 08:00 Albumin 3.7 g/dl (3.4-5.0) 03/22/19 08:00 RPR Titer Nonreactive (NONREACTIVE) 03/22/19 08:00 Labs noted. Assessment: 03/23/19 12:02 AOX3, in no acute respiratory distress. Full ROM, ambulating in the unit. Withdrawal symptoms. Plan: continue detox.
[2019-03-23] MEDS: THIAMINE HCL 100 MG TABLET (FP) PO SCH (22:27)
[2019-03-23] MEDS: MONTELUKAST NA 10 MG TABLET PO SCH (22:28)
[2019-03-24] MEDS: LORazepam 1 MG TABLET PO SCH ×4 (05:47→22:05)
[2019-03-24] MEDS: ACETAMINOPHEN 325 MG TABLET (FP) PO PRN (05:48)
[2019-03-24] MEDS: PRENATAL VITAMINS W/ FOLIC ACID TABLET (FP) PO SCH (10:20)
[2019-03-24] MEDS: BUDESONIDE/FORMETEROL FUMARATE 160/4.5 mcg INHALER IH SCH ×2 (10:20→22:05)
[2019-03-24] MEDS: SULFAMETHOXAZOLE/TRIMETHOPRIM 800MG/160MG D.S. TABLET PO SCH (10:20)
[2019-03-24] MEDS: BICTEGRAV/EMTRICIT/TENOFOV (BIKTARVY) 50-200-25 MG TABLET PO SCH (10:21)
[2019-03-24] MEDS: LISINOPRIL 10 MG TABLET (FP) PO SCH (10:21)
[2019-03-24] MEDS: FOLIC ACID 1 MG TABLET (FP) PO SCH (10:21)
[2019-03-24] MEDS: CHOLECALCIFEROL (VIT D3) 1,000 UNIT (25 MCG) TABLET PO SCH (10:21)
--- NOTE | 2019-03-24 13:25 | PN ---
[facility] CIWA - CIWA Score Nausea/Vomitin-No Nausea/No Vomiting Muscle Tremors: 2 Anxiety: 2 Agitation: 2 Paroxysmal Sweats: 1-Minimal Palms Moist Orientation: 0-Oriented Tacttile Disturbances: 0-None Auditory Disturbances: 0-None Visual Disturbances: 0-None Headache: 0-None Present CIWA-Ar Total Score: 7 S Progress Note (SOAP) Subjective: 63 years old male admitted on 03/21/19 for alcohol withdrawal sx management treating with ativan detox regimen ate breakfast and lunch ambulating on hallway social with peers in day room health teaching on behavior therapy and psychosocial therapy along with support network toward recovery Objective: 03/24/19 13:24 Vital Signs Temperature 97.8 F 03/24/19 13:21 Pulse Rate 101 H 03/24/19 13:21 Respiratory Rate 18 03/24/19 13:21 Blood Pressure 119/85 03/24/19 13:21 O2 Sat by Pulse Oximetry (%) Laboratory Last Values WBC 3.3 K/mm3 (4.0-10.0) L 03/22/19 08:00 RBC 4.07 M/mm3 (4.00-5.60) 03/22/19 08:00 Hgb 13.2 GM/dL (11.7-16.9) 03/22/19 08:00 Hct 40.1 % (35.4-49) 03/22/19 08:00 MCV 98.7 fl (80-96) H 03/22/19 08:00 MCH 32.5 pg (25.7-33.7) 03/22/19 08:00 MCHC 32.9 g/dl (32.0-35.9) 03/22/19 08:00 RDW 14.9 % (11.9-15.9) 03/22/19 08:00 Plt Count 158 K/MM3 (134-434) 03/22/19 08:00 MPV 9.6 fl (7.5-11.1) 03/22/19 08:00 Sodium 139 mmol/L (136-145) 03/22/19 08:00 Potassium 4.0 mmol/L (3.5-5.1) 03/22/19 08:00 Chloride 103 mmol/L (98-107) 03/22/19 08:00 Carbon Dioxide 28 mmol/L (21-32) 03/22/19 08:00 Anion Gap 8 MMOL/L (8-16) 03/22/19 08:00 BUN 17.9 mg/dL (7-18) 03/22/19 08:00 Creatinine 1.3 mg/dL (0.55-1.3) 03/22/19 08:00 Est GFR (CKD-EPI)AfAm 66.83 03/22/19 08:00 Est GFR (CKD-EPI)NonAf 57.66 03/22/19 08:00 Random Glucose 121 mg/dL (74-106) H 03/22/19 08:00 Calcium 9.4 mg/dL (8.5-10.1) 03/22/19 08:00 Total Bilirubin 0.7 mg/dL (0.2-1) 03/22/19 08:00 AST 15 U/L (15-37) 03/22/19 08:00 ALT 21 U/L (13-61) 03/22/19 08:00 Alkaline Phosphatase 76 U/L (45-117) 03/22/19 08:00 Total Protein 7.6 g/dl (6.4-8.2) 03/22/19 08:00 Albumin 3.7 g/dl (3.4-5.0) 03/22/19 08:00 RPR Titer Nonreactive (NONREACTIVE) 03/22/19 08:00 lab noted Assessment: 03/24/19 13:24 alcohol withdrawal Plan: ativan regimen
[2019-03-24] MEDS: MONTELUKAST NA 10 MG TABLET PO SCH (22:05)
[2019-03-24] MEDS: THIAMINE HCL 100 MG TABLET (FP) PO SCH (22:05)
[2019-03-25] MEDS ORDERED: LORazepam 0.5 MG TABLET PO PRN
[2019-03-25] MEDS: LORazepam 0.5 MG TABLET PO SCH ×4 (06:10→22:17)
[2019-03-25] MEDS: BUDESONIDE/FORMETEROL FUMARATE 160/4.5 mcg INHALER IH SCH ×2 (10:07→21:38)
[2019-03-25] MEDS: BICTEGRAV/EMTRICIT/TENOFOV (BIKTARVY) 50-200-25 MG TABLET PO SCH (10:08)
[2019-03-25] MEDS: PRENATAL VITAMINS W/ FOLIC ACID TABLET (FP) PO SCH (10:08)
[2019-03-25] MEDS: LISINOPRIL 10 MG TABLET (FP) PO SCH (10:08)
[2019-03-25] MEDS: CHOLECALCIFEROL (VIT D3) 1,000 UNIT (25 MCG) TABLET PO SCH (10:08)
[2019-03-25] MEDS: SULFAMETHOXAZOLE/TRIMETHOPRIM 800MG/160MG D.S. TABLET PO SCH (10:08)
[2019-03-25] MEDS: FOLIC ACID 1 MG TABLET (FP) PO SCH (10:08)
[2019-03-25] MEDS: ACETAMINOPHEN 325 MG TABLET (FP) PO PRN (10:09)
--- NOTE | 2019-03-25 10:21 | PN ---
S CIWA - CIWA Score Nausea/Vomitin-No Nausea/No Vomiting Muscle Tremors: 2 Anxiety: 1-Mildly Anxious Agitation: 1-Slight > Activity Paroxysmal Sweats: No Perspiration Orientation: 0-Oriented Tacttile Disturbances: 0-None Auditory Disturbances: 0-None Visual Disturbances: 0-None Headache: 0-None Present CIWA-Ar Total Score: 4 [facility] Progress Note (SOAP) Subjective: 63 years old male admitted on 03/21/19 for alcohol withdrawal sx management treating with ativen detox regimen feeling better today good self care patient prefers returning to ID provider for behavior and psychosocial therapies Objective: 03/25/19 10:20 Vital Signs Temperature 97.4 F L 03/25/19 09:18 Pulse Rate 99 H 03/25/19 09:18 Respiratory Rate 18 03/25/19 09:18 Blood Pressure 111/68 03/25/19 09:18 O2 Sat by Pulse Oximetry (%) Laboratory Last Values WBC 3.3 K/mm3 (4.0-10.0) L 03/22/19 08:00 RBC 4.07 M/mm3 (4.00-5.60) 03/22/19 08:00 Hgb 13.2 GM/dL (11.7-16.9) 03/22/19 08:00 Hct 40.1 % (35.4-49) 03/22/19 08:00 MCV 98.7 fl (80-96) H 03/22/19 08:00 MCH 32.5 pg (25.7-33.7) 03/22/19 08:00 MCHC 32.9 g/dl (32.0-35.9) 03/22/19 08:00 RDW 14.9 % (11.9-15.9) 03/22/19 08:00 Plt Count 158 K/MM3 (134-434) 03/22/19 08:00 MPV 9.6 fl (7.5-11.1) 03/22/19 08:00 Sodium 139 mmol/L (136-145) 03/22/19 08:00 Potassium 4.0 mmol/L (3.5-5.1) 03/22/19 08:00 Chloride 103 mmol/L (98-107) 03/22/19 08:00 Carbon Dioxide 28 mmol/L (21-32) 03/22/19 08:00 Anion Gap 8 MMOL/L (8-16) 03/22/19 08:00 BUN 17.9 mg/dL (7-18) 03/22/19 08:00 Creatinine 1.3 mg/dL (0.55-1.3) 03/22/19 08:00 Est GFR (CKD-EPI)AfAm 66.83 03/22/19 08:00 Est GFR (CKD-EPI)NonAf 57.66 03/22/19 08:00 Random Glucose 121 mg/dL (74-106) H 03/22/19 08:00 Calcium 9.4 mg/dL (8.5-10.1) 03/22/19 08:00 Total Bilirubin 0.7 mg/dL (0.2-1) 03/22/19 08:00 AST 15 U/L (15-37) 03/22/19 08:00 ALT 21 U/L (13-61) 03/22/19 08:00 Alkaline Phosphatase 76 U/L (45-117) 03/22/19 08:00 Total Protein 7.6 g/dl (6.4-8.2) 03/22/19 08:00 Albumin 3.7 g/dl (3.4-5.0) 03/22/19 08:00 RPR Titer Nonreactive (NONREACTIVE) 03/22/19 08:00 lab noted Assessment: 03/25/19 10:21 alcohol withdrawal Plan: ativan regimen
[2019-03-25] MEDS: MONTELUKAST NA 10 MG TABLET PO SCH (21:37)
[2019-03-25] MEDS: THIAMINE HCL 100 MG TABLET (FP) PO SCH (21:38)
[2019-03-26] MEDS ORDERED: LORazepam 0.5 MG TABLET PO ONE (05:00)
[2019-03-26] MEDS: ACETAMINOPHEN 325 MG TABLET (FP) PO PRN (05:24)
[2019-03-26 09:23] VITALS: BP 119/78; PULSE 94; TEMP 99
[2019-03-26] MEDS: FOLIC ACID 1 MG TABLET (FP) PO SCH (09:24)
[2019-03-26] MEDS: SULFAMETHOXAZOLE/TRIMETHOPRIM 800MG/160MG D.S. TABLET PO SCH (09:24)
[2019-03-26] MEDS: LISINOPRIL 10 MG TABLET (FP) PO SCH (09:24)
[2019-03-26] MEDS: PRENATAL VITAMINS W/ FOLIC ACID TABLET (FP) PO SCH (09:24)
[2019-03-26] MEDS: BUDESONIDE/FORMETEROL FUMARATE 160/4.5 mcg INHALER IH SCH (09:24)
[2019-03-26] MEDS: CHOLECALCIFEROL (VIT D3) 1,000 UNIT (25 MCG) TABLET PO SCH (09:24)
[2019-03-26] MEDS: BICTEGRAV/EMTRICIT/TENOFOV (BIKTARVY) 50-200-25 MG TABLET PO SCH (09:26)
--- NOTE | 2019-03-26 15:01 | DS ---
[facility] Detox Discharge Summary Admission Date: 03/21/19 Discharge Date: 03/26/19 - History Present History: Alcohol Dependence Additional Comments: 63 years old male admitted on 03/21/19 for alcohol withdrawal sx management treated with ativan detox regimen patient tolerated well alert oriented x 3 respiratory clear lung bilaterally on auscultation skin warm and dry - Physical Exam Results Vital Signs: Vital Signs Temperature 99.0 F 03/26/19 09:22 Pulse Rate 94 H 03/26/19 09:22 Respiratory Rate 16 03/26/19 09:22 Blood Pressure 119/78 03/26/19 09:22 O2 Sat by Pulse Oximetry (%) Pertinent Admission Physical Exam Findings: alcohol withdrawal sx Laboratory Last Values WBC 3.3 K/mm3 (4.0-10.0) L 03/22/19 08:00 RBC 4.07 M/mm3 (4.00-5.60) 03/22/19 08:00 Hgb 13.2 GM/dL (11.7-16.9) 03/22/19 08:00 Hct 40.1 % (35.4-49) 03/22/19 08:00 MCV 98.7 fl (80-96) H 03/22/19 08:00 MCH 32.5 pg (25.7-33.7) 03/22/19 08:00 MCHC 32.9 g/dl (32.0-35.9) 03/22/19 08:00 RDW 14.9 % (11.9-15.9) 03/22/19 08:00 Plt Count 158 K/MM3 (134-434) 03/22/19 08:00 MPV 9.6 fl (7.5-11.1) 03/22/19 08:00 Sodium 139 mmol/L (136-145) 03/22/19 08:00 Potassium 4.0 mmol/L (3.5-5.1) 03/22/19 08:00 Chloride 103 mmol/L (98-107) 03/22/19 08:00 Carbon Dioxide 28 mmol/L (21-32) 03/22/19 08:00 Anion Gap 8 MMOL/L (8-16) 03/22/19 08:00 BUN 17.9 mg/dL (7-18) 03/22/19 08:00 Creatinine 1.3 mg/dL (0.55-1.3) 03/22/19 08:00 Est GFR (CKD-EPI)AfAm 66.83 03/22/19 08:00 Est GFR (CKD-EPI)NonAf 57.66 03/22/19 08:00 Random Glucose 121 mg/dL (74-106) H 03/22/19 08:00 Calcium 9.4 mg/dL (8.5-10.1) 03/22/19 08:00 Total Bilirubin 0.7 mg/dL (0.2-1) 03/22/19 08:00 AST 15 U/L (15-37) 03/22/19 08:00 ALT 21 U/L (13-61) 03/22/19 08:00 Alkaline Phosphatase 76 U/L (45-117) 03/22/19 08:00 Total Protein 7.6 g/dl (6.4-8.2) 03/22/19 08:00 Albumin 3.7 g/dl (3.4-5.0) 03/22/19 08:00 RPR Titer Nonreactive (NONREACTIVE) 03/22/19 08:00 lab noted - Treatment Hospital Course: Detox Protocol Followed, Detoxed Safely, Responded well, Discharged Condition Good, Rehab Referral Accepted Patient has Accepted a Rehab Referral to: [facility] - Medication Discharge Medications: Ambulatory Orders Folic Acid - 1 mg PO DAILY 04/05/12 Budesonide/Formeterol Fumarate [SYMBICORT 160/4.5mcg -] 1 puff IH BID #1 inhaler 07/07/16 Montelukast Na [Singulair -] 10 mg PO HS #1 inh 07/07/16 Sulfamethoxazole/Trimethoprim [Bactrim DS -] 1 each PO DAILY #30 tablet Albuterol Sulfate Inhaler - [Ventolin HFA Inhaler -] 2 puff IH Q6H PRN 03/21/19 Bictegrav/Emtricit/Tenofov Ala [Biktarvy 50-200-25 mg Tablet] 1 each PO DAILY Lisinopril [Prinivil] 10 mg PO DAILY 03/21/19 - Diagnosis (1) Nicotine dependence Status: Acute Qualifiers: Nicotine product type: cigarettes Substance use status: in withdrawal Qualified Code(s): F17.213 - Nicotine dependence, cigarettes, with withdrawal (2) Alcohol dependence with uncomplicated withdrawal Status: Chronic (3) Asthma Status: Chronic Qualifiers: Asthma severity: mild Asthma persistence: intermittent Asthma complication type: with status asthmaticus Qualified Code(s): J45.22 - Mild intermittent asthma with status asthmaticus (4) HIV disease Status: Chronic - AMA Did Patient Leave Against Medical Advice: No CIWA Score - CIWA Score Nausea/Vomitin-No Nausea/No Vomiting Muscle Tremors: 1-None Visible, but [place] Anxiety: 1-Mildly Anxious Agitation: 0-Normal Activity Paroxysmal Sweats: No Perspiration Orientation: 0-Oriented Tacttile Disturbances: 0-None Auditory Disturbances: 0-None Visual Disturbances: 0-None Headache: 0-None Present CIWA-Ar Total Score: 2
== END 2019-03-26 09:33 | disposition home or self-care (01) | DRG 897 ==
LOC: YASAS 11:10 → Y3N 14:35
PROVIDERS: ADMIT Allergy & Immunology; ATTEND Allergy & Immunology
PROC: HZ2ZZZZ Detoxification Services for Substance Abuse Treatment (ICD-10-PCS; principal; 2019-03-21)
DX: F10.230 Alcohol dependence with withdrawal, uncomplicated (principal); J45.22 Mild intermittent asthma with status asthmaticus; F17.213 Nicotine dependence, cigarettes, with withdrawal; Z21 Asymptomatic human immunodeficiency virus [HIV] infection status
CPT/HCPCS: 36415; 71046-TC-FY; 80053; 85027; 86593; G0008; Q2036